=== PATIENT | female | born 1990 | race Caucasian/White ===

== ENCOUNTER 2024-03-27 08:57 | Outpatient (CLI) | payer BC | END 2024-03-27 08:58 | disposition home or self-care (01) | LOC: CSHRAD 08:57 | PROVIDERS: ATTEND Family Medicine Sports Medicine | DX: S13.9XXA Sprain of joints and ligaments of unspecified parts of neck, initial encounter (principal); M50.321 Other cervical disc degeneration at C4-C5 level | CPT/HCPCS: 72050 ==